=== PATIENT | male | born 1965 | race Two or more races ===

== ENCOUNTER 2024-02-16 07:15 | Day surgery (SDC) | payer OTHER ==
[~2024-02-16 07:15] MED LIST: CABERGOLINE0.5 MG
[2024-02-16] MEDS ORDERED: CEFTRIAXONE SODIUM 2,000 MG VIAL ONE (08:38)
[2024-02-16] MEDS ORDERED: METRONIDAZOLE/SODIUM CHLORIDE 500 MG/100 ML PIGGYBACK IV ONE (08:38)
[2024-02-16] MEDS ORDERED: DIBUCAINE 30 GM TUBE ONE (09:41)
[2024-02-16] MEDS ORDERED: POVIDONE-IODINE 118 ML BOTT TOP ONE (09:42)
[2024-02-16] MEDS ORDERED: HEMOSTATIC MATRIX 1 KIT KIT TOP ONE (09:43)
[2024-02-16] MEDS ORDERED: TAMSULOSIN HCL 0.4 MG CAP PO ONE ×2 (10:45→14:03)
[2024-02-16] MEDS ORDERED: OXYC1TAB9 PO (10:47)
== END 2024-02-16 17:15 | disposition home or self-care (01) ==
LOC: CIR.AMB 07:15
PROVIDERS: ATTEND Surgery
DX: K64.2 Third degree hemorrhoids (principal); K64.4 Residual hemorrhoidal skin tags; K64.8 Other hemorrhoids; R19.4 Change in bowel habit; Z88.6 Allergy status to analgesic agent; R00.1 Bradycardia, unspecified